=== PATIENT | male | born 1955 | race Two or more races ===

== ENCOUNTER 2020-01-29 11:40 | Inpatient (IN) | payer OTHER ==
[~2020-01-29] VITALS: Ht 167.6 cm; Wt 65.8 kg
[~2020-01-29 11:40] MED LIST: ASACOL HD800 MG PO; DELZICOL400 M1 PO; NEURIN SL; TOPROL XL50 M1; ZESTRIL5 MG
[2020-01-29] MEDS ORDERED: COZAAR25 MG (12:04)
[2020-01-31] MEDS ORDERED: LEVAQUIN500 MG PO (12:26)
[2020-01-31] MEDS ORDERED: FLAGYL500MG PO (12:27)
[2020-01-31] MEDS ORDERED: RECTICARE30 GM TOP (12:27)
[2020-01-31] MEDS ORDERED: INTESTINEX680 M1 PO (12:27)
[2020-01-31] MEDS ORDERED: ULTRACET PO (12:28)
[2020-01-31] MEDS ORDERED: PROTONIX40 MG PO (12:28)
== END 2020-01-31 13:22 | disposition home or self-care (01) | DRG 348 ==
LOC: ER 11:40 → O/R 12:17 → SURH 17:47
PROVIDERS: ADMIT Surgery
PROC: 0D9Q70Z Drainage of Anus with Drainage Device, Via Natural or Artificial Opening (ICD-10-PCS; principal; 2020-01-29 15:00)
DX: K61.0 Anal abscess (principal); K51.90 Ulcerative colitis, unspecified, without complications; K60.3 Anal fistula; I10 Essential (primary) hypertension; F41.9 Anxiety disorder, unspecified; R00.0 Tachycardia, unspecified; B96.1 Klebsiella pneumoniae [K. pneumoniae] as the cause of diseases classified elsewhere

== ENCOUNTER 2020-02-29 09:22 | Emergency (ER) | payer OTHER ==
[~2020-02-29] VITALS: Ht 167.6 cm; Wt 63.5 kg
[~2020-02-29 09:22] MED LIST changes: +COZAAR25 MG; +FLAGYL500MG PO; +INTESTINEX680 M1 PO; +LEVAQUIN500 MG PO; +PROTONIX40 MG PO; +RECTICARE30 GM TOP; +ULTRACET PO
== END 2020-02-29 10:40 | disposition home or self-care (01) ==
LOC: ER 09:22 → EDSEX 09:22 → ER 09:47
DX: L02.411 Cutaneous abscess of right axilla (principal); B95.62 Methicillin resistant Staphylococcus aureus infection as the cause of diseases classified elsewhere

== ENCOUNTER 2021-09-23 03:21 | Emergency (ER) | payer OTHER ==
[~2021-09-23] VITALS: Ht 167.6 cm; Wt 67.1 kg
[2021-09-23] MEDS ORDERED: DRAMAMINE LESS25 MG PO (05:11)
[2021-09-23] MEDS ORDERED: MOTION SICKNESS25 M5 PO (05:21)
== END 2021-09-23 07:20 | disposition home or self-care (01) ==
LOC: ER 03:21
DX: R42 Dizziness and giddiness (principal)

== ENCOUNTER 2021-10-16 06:27 | Day surgery (SDC) | payer OTHER ==
[~2021-10-16 06:27] MED LIST changes: +COZAAR25 MG PO; +DRAMAMINE LESS25 MG PO; +MOTION SICKNESS25 M5 PO; +TOPROL XL25 M1 PO
[2021-10-16] MEDS ORDERED: PERCOCET 5-3251 EACH PO (10:00)
[2021-10-16] MEDS ORDERED: RECTICARE30 GM TOP (10:01)
== END 2021-10-16 16:20 | disposition home or self-care (01) ==
LOC: CIR.AMB 06:27
PROVIDERS: ATTEND Surgery
DX: K60.3 Anal fistula (principal); Z20.822 Contact with and (suspected) exposure to COVID-19

== ENCOUNTER 2021-11-02 09:26 | Emergency (ER) | payer OTHER ==
[~2021-11-02] VITALS: Ht 167.6 cm; Wt 67.1 kg
[~2021-11-02 09:26] MED LIST changes: +PERCOCET 5-3251 EACH PO
== END 2021-11-02 10:45 | disposition home or self-care (01) ==
LOC: ER 09:26
DX: N39.0 Urinary tract infection, site not specified (principal); I10 Essential (primary) hypertension